=== PATIENT | female | born 1985 | race Asian ===

== ENCOUNTER 2022-01-18 07:57 | Inpatient (IN) | payer OTHER, SELFPAY ==
[2022-01-18 08:10] VITALS: BP 133/84; PULSE 98; RESP 18; TEMP 36.6; O2SAT 96
--- NOTE | 2022-01-18 08:17 | PC.NURSE ---
Patient admitted to floor via EMS, signed a CV, oriented to unit. Gait steady, affect even.
[2022-01-18 08:18] VITALS: BMI 25.4
--- NOTE | 2022-01-18 12:22 | PC.ADMIT ---
Patient is a 36 year old female, admitted on a CV from [facility] ED after an intentional overdose on Oxycodone 5 mg (20 tablets), Prozac 40 mg (2 tablets), Cymbalta ( 2 tablets, dosage unknown), and ZZZQuil. Patient was found by her in the morning, asleep, with several empty medication bottles lined up next to her. Dx: Major Depressive Disorder, severe. Patient reports she has had two significant stressors recently including the discovery that her had an undisclosed alcohol use problem and that her mother has been diagnosed with stage IV metastatic lung cancer. The overdose was triggered by an argument she had with her after his disclosure. This is her first inpatient admission, though she has had SI before, and her medications had been kept in a locked box as a result. She was able to access the medications in the locked box, including Oxycodone, a prescription she received after undergoing a salpingo-oopherectomy. On arrival patient was alert, oriented x3, affect even, pleasant. Denied any residual effects from the overdose, denied SI/HI. Patient arrived dressed in a hospital skyler, given belongings once inventoried. She states that she didn't anticipate this attempt, though she had been having increased mood swings : It was unexpected- a shock to me. She does not have a clear recollection of the attempt.
[2022-01-18] MEDS: cephALEXin 500 MG CAPSULE PO ×2 (14:36→20:58)
[2022-01-18] MEDS: DULoxetine HCl 20 MG CAPSULE.DR PO (14:36)
[2022-01-18] MEDS: Loratadine 10 MG TABLET PO (14:36)
--- NOTE | 2022-01-18 20:42 | HO.PSYADMNOT ---
HPI Date of Service: 01/18/22 Chief Complaint: Major depressive sidorder HPI Narrative: pt was BIB her to ED after he found her asleep with empty med bottles by her side. she had taken 100 mg oxycodone, some ZQuil, 2 prozac tabs, and 2 cymbalta tabs. she had had an argument with her earlier in the evening and had gone for a drive to try to clear her head. she came home late after her and their 8 yo child were asleep and then overdosed in her 's office (where the med safe where the medications were kept was. she prised it open). she describes the act as very impulsive, saying she didn't feel suicidal shortly before the act and doesn't feel suicidal now (or when she was awakened). she describes herself as shocked at her behavior and rather scared of herself, concerned about what she might do moving forward if left to her own devices. she reports severe psychosocial stressors in recent months including the revelation that her has been struggling with an occult drinking problem which finally became known to her in August, when he entered a rehab. in addition her mother was diagnosed with metastatic lung CA in september, which is termninal. to complicate things further, pt is faced with a medical complication regarding her mood complaint: she was diagnosed with endometriosis in august and is currently undergoing hormonal therapy which induces an artificial menopause for 6 months to try to reduce the size of the wayward tissue. such therapy is associated with depression and mood lability. in september she began to have severe anxiety with panic attacks and was nearly unable to leave the house. in october she had SI via OD and was able to approach her and therapist about it. this episode, she was not. she reports that in addition to overdose, she has also considered suicide via drowning or hanging. she was open to a dose increase in duloxetine, as that had been the plan with her outpt prescriber in any case, and CUTTER GRINDER consult to review her endometriosis Tx. she reluctantly agrees to try ativan 1 mg PRN severe anxiety or sense of overwhelm as well. Past Psychiatric History: no prior psychiatric hosps (other than present) no h/o SA (other than index event). h/o SI dating to October,, when she had the idea to overdose. no h/o SIB no h/o HIB. entered treatment when in [place] about 4.5 years ago. was with that therapist for nearly 4 years, then moved here and did not immediately seek treatment. obtained therapist and psychiatrist in september,: leodan schneider, whom she sees weekly. clayton paz does her meds, seen via telehealth. no mental health treatment Hx prior to entering therapy about 4.5 years ago. 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 the family moved from the [facility] area in 2019 to begin her work at [email or web address]. Substance History: alcohol - about twice monthly has 1-2 drinks with friends tobacco - denies use cannabis - denies use denies use of other drugs or recreational substances Trauma History: denies Diagnostics Vital Signs (24Hr): Vital Signs - 24 hr 01/18/22 08:10 Temperature 97.9 F Pulse Rate 98 Respiratory Rate 18 Blood Pressure 133/84 Pulse Oximetry 96 Oxygen Delivery Method Room Air BMI result Body Mass Index 25.4 Meds/Allergies Meds Home Medications Medication Instructions Recorded Confirmed Type cephalexin 500 mg capsule 500 mg PO BID 01/18/22 01/18/22 History duloxetine 20 mg capsule,delayed 20 mg PO BID 01/18/22 01/18/22 History release leuprolide 3.75 mg intramuscular 3.75 mg IM 01/18/22 History Allergies Allergies Allergy/AdvReac Type Severity Reaction Status Date / Time No Known Allergies Allergy Verified 01/18/22 08:36 Mental Status Exam Mental Status Exam Narrative: dressed partially in hospital skyler and partially in street clothes. adequately groomed, green highlights in her hair. cooperative, no PMA/PMR. speech nml in rate, amount, loudness, tone, latency. thoughts linear and logical without evidence of paranoia or delusions. affect flexible but generally constricted, normo-intense, non-labile (one brief period of tearfulness). mood shocked. denies SI/HI/AVH. Assessment & Plan Assessment & Plan (1) Major depressive disorder with current active episode: Status: Acute Code(s): F32.9 - Major depressive disorder, single episode, unspecified Plan increase duloxetine 20 BID to 30 BID for depression and anxiety. ativan 1 mg PRN severe anxiety/overwhelm. request CUTTER GRINDER opine as to the role her hormonal therapy may be playing in depressed mood and impulsive suicide attempt, and options for ongoing mgmt of endometriosis. Patient educated on: diagnosis and medication risk/benefits Reason for continued inpatient stay Substantial Risk for: harm to self and inability to function
[2022-01-18 20:55] VITALS: BP 128/83; PULSE 116; RESP 16; TEMP 36.3; O2SAT 98
[2022-01-18] MEDS: DULoxetine HCl 30 MG CAPSULE.DR PO (20:58)
[2022-01-19] MEDS: Loratadine 10 MG TABLET PO (08:38)
[2022-01-19] MEDS: Fluticasone Propionate Nasal 16 GM SPRAY 1 SPRAY NOSTRIL-B (08:38)
[2022-01-19 08:41] VITALS: BP 115/60; PULSE 94; RESP 18; TEMP 36.7; O2SAT 97
[2022-01-19] MEDS: DULoxetine HCl 30 MG CAPSULE.DR PO ×2 (09:28→20:34)
[2022-01-19] MEDS: cephALEXin 500 MG CAPSULE PO ×2 (09:28→20:34)
--- NOTE | 2022-01-19 16:01 | HO.PSYCHPN ---
Subjective Subjective Date of Service: 01/19/22 Reason For Visit: Major depressive sidorder Interim History: calm, cooperative. remains flummoxed by her behavior. 36 yo, no h/o SA or even depression so severe that that was dwelt upon, aside from post- depression where she thought about it briefly, but the depression spontaneously resolved. gets leupron Q28 days, most supposed to have gotten it last thursday (2 days ago) but missed the dosing, of course. states she is feeling pretty normal right now, but that's how she felt just before trying to kill herself, as well as not too long after. would like discharge thursday. per staff, doing well. slept well. visible, pleasant. Mental Status Exam Mental Status Exam Narrative: dressed partially in hospital skyler and partially in street clothes. adequately groomed, green highlights in her hair. cooperative, no PMA/PMR. speech nml in rate, amount, loudness, tone, latency. thoughts linear and logical without evidence of paranoia or delusions. affect flexible but generally constricted, normo-intense, non-labile. mood pretty normal. denies SI/HI/AVH. Diagnostics Vital Signs (24Hr): Vital Signs - 24 hr 01/18/22 20:55 01/19/22 08:41 Temperature 97.4 F 98.0 F Pulse Rate 116 H 94 Respiratory Rate 16 18 Blood Pressure 128/83 115/60 Pulse Oximetry 98 97 Oxygen Delivery Method Room Air Room Air BMI result Body Mass Index 25.4 Medications Medications Current Medications Acetaminophen (Acetaminophen 325 Mg Tablet) 650 mg PO Q6H PRN PRN Reason: Headache/Pain Mild Scale (1-3) Al Hydroxide/Mg Hydroxide (Magnesium Hydrox/Alum Hydrox 30 Ml Oral.Susp) 30 ml PO Q6H PRN PRN Reason: Heartburn/Nausea Cephalexin HCl (Cephalexin 500 Mg Capsule) 500 mg PO BID [facility] Last Admin: 01/19/22 09:28 Dose: 500 mg Duloxetine HCl (Duloxetine Hcl 30 Mg Capsule.Dr) 30 mg PO BID [facility] Last Admin: 01/19/22 09:28 Dose: 30 mg Fluticasone Propionate (Fluticasone Propionate Nasal 16 Gm [place]) 1 spray NOSTRIL-B DAILY [facility] Last Admin: 01/19/22 08:38 Dose: 1 spray Hydroxyzine HCl (Hydroxyzine Hcl 25 Mg Tablet) 25 mg PO Q6H PRN PRN Reason: Anxiety Loratadine (Loratadine 10 Mg Tablet) 10 mg PO DAILY [facility] Last Admin: 01/19/22 08:38 Dose: 10 mg Lorazepam (Lorazepam 1 Mg Tablet) 1 mg PO Q4H PRN PRN Reason: severe anxiety Magnesium Hydroxide (Milk Of Magnesia 30 Ml Oral.Susp) 30 ml PO DAILY PRN PRN Reason: Constipation Nicotine Polacrilex (Nicotine Polacrilex 2 Mg Gum) 2 mg BUCCAL Q2H PRN PRN Reason: Nicotine Cravings Trazodone HCl (Trazodone Hcl 50 Mg Tablet) 50 mg PO BEDTIME PRN PRN Reason: Insomnia Allergies Allergies Allergy/AdvReac Type Severity Reaction Status Date / Time No Known Allergies Allergy Verified 01/18/22 08:36 Assessment & Plan Assessment & Plan (1) Major depressive disorder with current active episode: Status: Acute Code(s): F32.9 - Major depressive disorder, single episode, unspecified Plan increased duloxetine 20 BID to 30 BID for depression and anxiety. ativan 1 mg PRN severe anxiety/overwhelm. requested ASSOCIATE PROFESSOR OF THEOLOGY opine as to the role her hormonal therapy may be playing in depressed mood and impulsive suicide attempt, and options for ongoing mgmt of endometriosis (Zerbe). I spent __25____ minutes with the patient and/or on the patient floor today, greater than?50% of which was spent counseling/coordinating care. Reason for contiued inpatient stay Substantial Risk for: harm to self, inability to function and rapid decompensation
[2022-01-19 20:20] VITALS: BP 125/71; PULSE 90; RESP 18; TEMP 36.6; O2SAT 98
[2022-01-20 06:00] VITALS: BP 124/82; PULSE 88; RESP 16; TEMP 36.8; O2SAT 98
[2022-01-20] MEDS: Loratadine 10 MG TABLET PO (08:20)
[2022-01-20] MEDS: DULoxetine HCl 30 MG CAPSULE.DR PO ×2 (08:20→21:17)
[2022-01-20] MEDS: Fluticasone Propionate Nasal 16 GM SPRAY 1 SPRAY NOSTRIL-B (08:20)
[2022-01-20] MEDS: cephALEXin 500 MG CAPSULE PO ×2 (08:20→21:18)
--- NOTE | 2022-01-20 08:39 | PM.GYNCN ---
DIGITAL PRINTER OPERATOR - CN: [facility] Data of Consult Consult date: 01/20/22 Requesting Physician: Dhruv Shaffer Primary Care Provider: Unknown Physician Consult Narrative Narrative: I was consulted on Megan Braden who is a 36 year old female who is admitted for suicidal attempt and depression. The patient gives a history of endometriosis status post right laparoscopic salpingo-oophorectomy in 11/01 after which shewas started on Depo Lupron Q 1 month. Last shot was scheduled on 01/17 but was missed. No Pelvic pain or vaginal bleeding or any other complaints. The plan is for the patient to be discharged either this afternoon or tomorrow morning per patient. cc:: CC: Dhruv Shaffer ENVIRONMENTAL EMERGENCIES ASSISTANT - Review of Systems Review of Systems ROS Unobtainable: All systems reviewed & are unremarkable except as noted in HPI and below OB PMFSH Past Medical History Medical History (Updated 01/20/22 @ 08:43 by Napoleon Reyes MD) Endometriosis Surgical History Surgical History (Updated 01/20/22 @ 08:42 by Napoleon Reyes MD) History of salpingo-oophorectomy Social History Social History Household Members: Spouse Patient Tobacco Use Status: Never used Tobacco Use of substances other than those prescribed or required for medical reasons: No Currently Displaying Signs/Symptoms of Drug Intoxication Withdrawal: No Have you been hit, kicked, punched, or otherwise hurt by someone within the past year? If so, by whom?: No Do you feel safe in your current relationship?: Yes Is there a partner from a previous relationship who is making you feel unsafe now?: No Are you made to feel afraid or neglected: No Spiritual Healthcare Practices: Denies Advance Directives: No Advance Directives Information Provided: Yes Advance Directives on File: No Do you have thoughts of harming others: None Do you have a plan to hurt others: No Plan Nutrition Risks: No Nutritional Risk Patient : No Meds Allergies Allergy/AdvReac Type Severity Reaction Status Date / Time No Known Allergies Allergy Verified 01/18/22 08:36 Active Medications: Current Medications Acetaminophen (Acetaminophen 325 Mg Tablet) 650 mg PO Q6H PRN PRN Reason: Headache/Pain Mild Scale (1-3) Al Hydroxide/Mg Hydroxide (Magnesium Hydrox/Alum Hydrox 30 Ml Oral.Susp) 30 ml PO Q6H PRN PRN Reason: Heartburn/Nausea Cephalexin HCl (Cephalexin 500 Mg Capsule) 500 mg PO BID COUNTS INCLUDE 234 BEDS AT THE [facility] Last Admin: 01/20/22 08:20 Dose: 500 mg Duloxetine HCl (Duloxetine Hcl 30 Mg Capsule.Dr) 30 mg PO BID COUNTS INCLUDE 234 BEDS AT THE [facility] Last Admin: 01/20/22 08:20 Dose: 30 mg Fluticasone Propionate (Fluticasone Propionate Nasal 16 Gm [place]) 1 spray NOSTRIL-B DAILY COUNTS INCLUDE 234 BEDS AT THE [facility] Last Admin: 01/20/22 08:20 Dose: 1 spray Hydroxyzine HCl (Hydroxyzine Hcl 25 Mg Tablet) 25 mg PO Q6H PRN PRN Reason: Anxiety Loratadine (Loratadine 10 Mg Tablet) 10 mg PO DAILY COUNTS INCLUDE 234 BEDS AT THE [facility] Last Admin: 01/20/22 08:20 Dose: 10 mg Lorazepam (Lorazepam 1 Mg Tablet) 1 mg PO Q4H PRN PRN Reason: severe anxiety Magnesium Hydroxide (Milk Of Magnesia 30 Ml Oral.Susp) 30 ml PO DAILY PRN PRN Reason: Constipation Nicotine Polacrilex (Nicotine Polacrilex 2 Mg Gum) 2 mg BUCCAL Q2H PRN PRN Reason: Nicotine Cravings Trazodone HCl (Trazodone Hcl 50 Mg Tablet) 50 mg PO BEDTIME PRN PRN Reason: Insomnia Home Medications Medication Instructions Recorded Confirmed Last Taken Type cephalexin 500 mg capsule 500 mg PO BID 01/18/22 01/18/22 01/17/22 History duloxetine 20 mg capsule,delayed 20 mg PO BID 01/18/22 01/18/22 1 Day Ago History release ~01/17/22 leuprolide 3.75 mg intramuscular 3.75 mg IM 01/18/22 3 Weeks Ago History ~12/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 PRINTER OPERATOR Physical Exam Vitals Vital signs: Temp Pulse Resp BP Pulse Ox O2 Del Method 97.9 F 90 18 125/71 98 01/19/22 20:20 01/19/22 20:20 01/19/22 20:20 01/19/22 20:20 01/19/22 20:20 01/19/22 20:20 BMI result Body Mass Index 25.4 Constitutional General Appearance: Healthy appearing, Well-nourished and Well-developed Skin Appearance: No rashes and No lesions Cardiovascular Auscultation: RRR Abdomen Auscultation/Inspection/Palpation: Soft, Non-distended, No tenderness and No CVA tenderness Female Genitalia (Pelvic) Exam: Deferred Assessment and Plan (1) Endometriosis: Status: Acute Since the patient developed severe depression with suicidal attempt coincidingwith the initiation of the treatment of Lupron Depot, I recommend an alternative treatment for endometriosis related pain other than Depo- Lupron. Discussed with the patient different options of treatment including continuous control pills, Depo-Provera or OriLisa. All pros and cons, risks and benefits of each were discussed with the patient. the patient would like to follow-up with her OBGYN ss soon as possible once discharge to decide on a treatment plan. Since the patient's depression has improved and she has missed her last Depo Lupron 3 days ago, the next step in endometriosis management can wait few more days but explained to the patient the importance of not delaying it more than that since her pain can recur soon. All questions answered, the patient verbalized understanding and agreed with the plan. I spent a total of 25 minutes reviewing the chart, communicating with the patient and documenting in the medical record.
--- NOTE | 2022-01-20 10:29 | P.DS_ITS ---
DS: Providers Provider Date of admission: 01/18/22 07:57 Primary care physician: Unknown Physician Consults: 01/18/22 08:48 Consult to Hospitalist Routine Consulting Provider: Hospitalist Reason For Exam: admission from OSH 01/19/22 16:05 Consult to Obstetrics / Gynecology Routine Consulting Provider: Napoleon Reyes Reason for consultation: suicide attempt on hormone Tx for endometriosis; opine on Tx continuation Has provider been notified: No DS: Diagnosis Discharge Diagnosis (1) Endometriosis: Status: Acute DS: Medications Discharge Medications Home Medications: Previous Rx's Medication Instructions Recorded cephalexin 500 mg capsule 500 mg PO BID 5 days #10 caps 01/20/22 duloxetine 30 mg capsule,delayed 30 mg PO BID 30 days #60 caps 01/20/22 release lorazepam 1 mg tablet 1 mg PO DAILY PRN severe anxiety 01/20/22 30 days #10 tabs DS: Summary Time Spent with Patient Time attestation: Total time spent providing and/or coordinating discharge services: Discharge Plan Discharge Patient Disposition: Home, Self-Care Discharge Diagnosis: Depressive Disorder due to medical cause Referrals: [facility] [Physician] - 1 Week Discharge Medications: New lorazepam 1 mg Tablet 1 mg PO DAILY PRN (Reason: severe anxiety) 30 Days Qty: 10 0RF duloxetine 30 mg Capsule,Delayed Release(Dr/Ec) 30 mg PO BID 30 Days Qty: 60 0RF Continued cephalexin 500 mg Capsule 500 mg PO BID 5 Days Qty: 10 0RF Rx Instructions: For 7 days Started in [facility] ED Discontinued Lupron Depot 3.75 mg Injectable 3.75 mg IM Label Comments: will bring in, patient states she is due duloxetine 20 mg Capsule,Delayed Release(Dr/Ec) 20 mg PO BID Discharge Orders: Discharge Order (Routine); Ordered 01/20/22 Ordered By: Dhruv Shaffer Diet: Advance to usual diet Activity on Discharge: As tolerated Stand Alone Forms: Patient Portal Discharge page Care Plan Goals: remain safe and stable in the outpatient treatment setting Health Concerns: endometriosis Plan of Treatment: take medications as prescribed, attend appointments as scheduled Assessment: not at imminent risk of harm to self or others, although this behavior for her is unpredictable
--- NOTE | 2022-01-20 14:20 | P.PNPSI_ITS ---
Subjective Subjective Date of Service: 01/20/22 Reason For Visit: Major depressive sidorder Interim History: pt calm, cooperative. no change in presentation. discuss discharge today. slept well, mood normal anxiety. denies depression, denies SI. discuss chief console operator recs. discharge scheduled. per staff, seen by OB this morning. being treated for UTI. attending groups. denies SI. later in the day discussed case with CALI muñoz, pt's , and pt's therapist. per collateral from , pt has had reactive mood for a long time to instances of injustice. since entering therapy her ability to cope with those episodes has improved, and they have softened. in the past several months it has apparently been harder for her to manage such reactions. she has periods of what appears to be decapacitatingly depressed mood for up to 2 days at a time. her periods of reactive mood last only hours, generally. she will complete a crisis plan today with CALI, and CALI will make a DCF report on the event. the plan is now discharge for tomorrow. Mental Status Exam Mental Status Exam Narrative: dressed partially in hospital [facility] and partially in street clothes. adequately groomed, green highlights in her hair. cooperative, no PMA/PMR. speech nml in rate, amount, loudness, tone, latency. thoughts linear and logical without evidence of paranoia or delusions. affect flexible but generally constricted, normo-intense, non-labile. mood normal anxiety. denies SI. Diagnostics Vital Signs (24Hr): Vital Signs - 24 hr 01/19/22 20:20 01/20/22 06:00 Temperature 97.9 F 98.3 F Pulse Rate 90 88 Respiratory Rate 18 16 Blood Pressure 125/71 124/82 Pulse Oximetry 98 98 Oxygen Delivery Method Room Air Room Air BMI result Body Mass Index 25.4 Medications Medications Current Medications Acetaminophen (Acetaminophen 325 Mg Tablet) 650 mg PO Q6H PRN PRN Reason: Headache/Pain Mild Scale (1-3) Al Hydroxide/Mg Hydroxide (Magnesium Hydrox/Alum Hydrox 30 Ml Oral.Susp) 30 ml PO Q6H PRN PRN Reason: Heartburn/Nausea Cephalexin HCl (Cephalexin 500 Mg Capsule) 500 mg PO BID [facility] Last Admin: 01/20/22 08:20 Dose: 500 mg Duloxetine HCl (Duloxetine Hcl 30 Mg Capsule.Dr) 30 mg PO BID [facility] Last Admin: 01/20/22 08:20 Dose: 30 mg Fluticasone Propionate (Fluticasone Propionate Nasal 16 Gm [place]) 1 spray NOSTRIL-B DAILY [facility] Last Admin: 01/20/22 08:20 Dose: 1 spray Hydroxyzine HCl (Hydroxyzine Hcl 25 Mg Tablet) 25 mg PO Q6H PRN PRN Reason: Anxiety Loratadine (Loratadine 10 Mg Tablet) 10 mg PO DAILY [facility] Last Admin: 01/20/22 08:20 Dose: 10 mg Lorazepam (Lorazepam 1 Mg Tablet) 1 mg PO Q4H PRN PRN Reason: severe anxiety Magnesium Hydroxide (Milk Of Magnesia 30 Ml Oral.Susp) 30 ml PO DAILY PRN PRN Reason: Constipation Nicotine Polacrilex (Nicotine Polacrilex 2 Mg Gum) 2 mg BUCCAL Q2H PRN PRN Reason: Nicotine Cravings Trazodone HCl (Trazodone Hcl 50 Mg Tablet) 50 mg PO BEDTIME PRN PRN Reason: Insomnia Allergies Allergies Allergy/AdvReac Type Severity Reaction Status Date / Time No Known Allergies Allergy Verified 01/18/22 08:36 Assessment & Plan Assessment & Plan (1) Endometriosis: Status: Acute Code(s): N80.9 - Endometriosis, unspecified Assessment and Plan: Since the patient developed severe depression with suicidal attempt coincidingwith the initiation of the treatment of Lupron Depot, I recommend an alternative treatment for endometriosis related pain other than Depo- Lupron. Discussed with the patient different options of treatment including continuous control pills, Depo-Provera or OriLisa. All pros and cons, risks and benefits of each were discussed with the patient. the patient would like to follow-up with her OBGYN ss soon as possible once discharge to decide on a treatment plan. Since the patient's depression has improved and she has missed her last Depo Lupron 3 days ago, the next step in endometriosis management can wait few more days but explained to the patient the importance of not delaying it more than that since her pain can recur soon. All questions answered, the patient verbalized understanding and agreed with the plan. I spent a total of 25 minutes reviewing the chart, communicating with the patient and documenting in the medical record. 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 ativan 1 mg PRN severe anxiety/overwhelm. requested VENEER GLUER opine as to the role her hormonal therapy may be playing in depressed mood and impulsive suicide attempt, and options for ongoing mgmt of endometriosis. seen by Amy, see recs above. in short, plan is to D/C leupron therapy and meet with chief console operator NORMAN to start different Tx. DCF report being made today by CALI muñoz. planning for discharge tomorrow. I spent ___60___ minutes with the patient and/or on the patient floor today, greater than?50% of which was spent counseling/coordinating care. Reason for contiued inpatient stay Substantial Risk for: harm to self, inability to function and rapid decompensation
[2022-01-20 21:12] VITALS: BP 120/73; PULSE 101; RESP 16; TEMP 36.6; O2SAT 99
[2022-01-21 06:00] VITALS: BP 123/71; PULSE 88; RESP 16; TEMP 36.6; O2SAT 97
[2022-01-21] MEDS: Loratadine 10 MG TABLET PO (08:50)
[2022-01-21] MEDS: DULoxetine HCl 30 MG CAPSULE.DR PO (08:50)
[2022-01-21] MEDS: cephALEXin 500 MG CAPSULE PO (08:50)
[2022-01-21] MEDS: Fluticasone Propionate Nasal 16 GM SPRAY 1 SPRAY NOSTRIL-B (08:51)
--- NOTE | 2022-01-21 11:33 | PM.PSYDC ---
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 adequately groomed, green highlights in her hair. cooperative, no PMA/PMR. speech nml in rate, amount, loudness, tone, latency. thoughts linear and logical without evidence of paranoia or delusions. affect flexible but generally constricted, normo-intense, non-labile. mood pretty level, normal. excited to go home. denies SI/SIBI/HI/AVH. DS: Summary Hospital Course Hospital Course: per 01/18 admission note: pt was BIB her to ED after he found her asleep with empty med bottles by her side.? she had taken 100 mg oxycodone, some ZQuil, 2 prozac tabs, and 2 cymbalta tabs.? she had had an argument with her earlier in the evening and had gone for a drive to try to clear her head.? she came home late after her and their 8 yo child were asleep and then overdosed in her 's office (where the med safe where the medications were kept was.? she prised it open).? she describes the act as very impulsive, saying she didn't feel suicidal shortly before the act and doesn't feel suicidal now (or when she was awakened).? she describes herself as shocked at her behavior and rather scared of herself, concerned about what she might do moving forward if left to her own devices.? she reports severe psychosocial stressors in recent months including the revelation that her has been struggling with an occult drinking problem which finally became known to her in August, when he entered a rehab.? in addition her mother was diagnosed with metastatic lung CA in september, which is termninal.? to complicate things further, pt is faced with a medical complication regarding her mood complaint: she was diagnosed with endometriosis in august and is currently undergoing hormonal therapy which induces an artificial menopause for 6 months to try to reduce the size of the wayward tissue.? such therapy is associated with depression and mood lability.? in september she began to have severe anxiety with panic attacks and was nearly unable to leave the house.? in october she had SI via OD and was able to approach her and therapist about it.? this episode, she was not.? she reports that in addition to overdose, she has also considered suicide via drowning or hanging.? she was open to a dose increase in duloxetine, as that had been the plan with her outpt prescriber in any case, and [facility] consult to review her endometriosis Tx.? she reluctantly agrees to try ativan 1 mg PRN severe anxiety or sense of overwhelm as well. Past Psychiatric History: no prior psychiatric hosps (other than present) no h/o SA (other than index event).? h/o SI dating to October,, when she had the idea to overdose. no h/o SIB no h/o HIB. entered treatment when in [place] about 4.5 years ago.? was with that therapist for nearly 4 years, then moved here and did not immediately seek treatment.? obtained therapist and psychiatrist in september,: leodan schneider, whom she sees weekly. clayton paz does her meds, seen via telehealth. no mental health treatment Hx prior to entering therapy about 4.5 years ago. 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 the family moved from the [place], [place], area in 2020 to begin her work at [employer]. Substance History: alcohol - about twice monthly has 1-2 drinks with friends tobacco - denies use cannabis - denies use denies use of other drugs or recreational substances Trauma History: denies 01/19: calm, cooperative.? remains flummoxed by her behavior.? 36 yo, no h/o SA or even depression so severe that that was dwelt upon, aside from post- depression where she thought about it briefly, but the depression spontaneously resolved.? gets leupron Q28 days, most supposed to have gotten it last thursday (2 days ago) but missed the dosing, of course.? states she is feeling pretty normal right now, but that's how she felt just before trying to kill herself, as well as not too long after.? would like discharge thursday.? per staff, doing well.? slept well.? visible, pleasant. 01/20: pt calm, cooperative.? no change in presentation.? discuss discharge today.? slept well, mood normal anxiety. ? denies depression, denies SI.? discuss video coordinator recs.? discharge scheduled.? per staff, seen by OB this morning.? being treated for UTI.? attending groups.? denies SI.? later in the day discussed case with CALI muñoz, pt's , and pt's therapist.? per collateral from , pt has had reactive mood for a long time to instances of injustice.? since entering therapy her ability to cope with those episodes has improved, and they have softened.? in the past several months it has apparently been harder for her to manage such reactions.? she has periods of what appears to be decapacitatingly depressed mood for up to 2 days at a time.? her periods of reactive mood last only hours, generally.? she will complete a crisis plan today with CALI, and CALI will make a DCF report on the event.? the plan is now discharge for tomorrow. Precis: increased duloxetine 20 BID to 30 BID for depression and anxiety. ativan 1 mg PRN severe anxiety/overwhelm. requested [facility] [employer] [facility] opine as to the role her hormonal therapy may be playing in depressed mood and impulsive suicide attempt, and options for ongoing mgmt of endometriosis.? seen by Amy, see recs below.? in short, plan is to D/C leupron therapy and meet with video coordinator NORMAN to start different Tx. DCF report being made today by CALI muñoz. discharged 01/21 to home. per 01/20 [facility] [facility] consult: Since the patient developed severe depression with suicidal attempt coincidingwith the initiation of the treatment of Lupron Depot,? I recommend? an alternative treatment for endometriosis related pain other than Depo- Lupron.? Discussed with the patient different options of treatment including continuous control pills, Depo-Provera or OriLisa.? All pros and cons, risks and benefits of each were discussed with the patient.? the patient would like to follow-up with her OBGYN? ss soon as possible once discharge to decide on a treatment plan. Since the patient's depression has improved and she has missed her last Depo Lupron 3 days ago, the next step in endometriosis management can wait few more days but explained to the patient the importance of not delaying it more than that since her pain can recur soon.? All questions answered, the patient verbalized understanding and agreed with the plan.? I spent a total of 25 minutes reviewing the chart, communicating with the patient and? documenting in the medical record. Time Spent with Patient Time attestation: Total time spent providing and/or coordinating discharge services: Time spent: Greater than 30 minutes Discharge Plan Discharge Patient Disposition: Home, Self-Care Discharge Diagnosis: Depressive Disorder due to medical cause Referrals: Therapist: Leodan Schneider ([facility]) [Other] - 01/22/22 9:00 am (Telehealth ) Nicky Mittal MD [Physician] - 02/27/22 10:00 am Discharge Medications: New lorazepam 1 mg Tablet 1 mg PO DAILY PRN (Reason: severe anxiety) 30 Days Qty: 10 0RF duloxetine 30 mg Capsule,Delayed Release(Dr/Ec) 30 mg PO BID 30 Days Qty: 60 0RF Continued cephalexin 500 mg Capsule 500 mg PO BID 5 Days Qty: 10 0RF Rx Instructions: For 7 days Started in [facility] Discontinued Lupron Depot 3.75 mg Injectable 3.75 mg IM Label Comments: will bring in, patient states she is due duloxetine 20 mg Capsule,Delayed Release(Dr/Ec) 20 mg PO BID Discharge Orders: Discharge Order (Routine); Ordered 01/21/22 Ordered By: Dhruv Shaffer Diet: Advance to usual diet Activity on Discharge: As tolerated Stand Alone Forms: Patient Portal Discharge page, Community Support Care Plan Goals: remain safe and stable in the outpatient treatment setting Health Concerns: endometriosis Plan of Treatment: take medications as prescribed, attend appointments as scheduled Assessment: not at imminent risk of harm to self or others, although this behavior for her is unpredictable Discharge Date/Time: 01/21/22 13:49
== END 2022-01-21 13:49 | disposition home or self-care (01) | DRG 884 ==
PROVIDERS: Admitting Provider Psychiatry & Neurology Psychiatry; Visit Provider Psychiatry & Neurology Psychiatry
DX: F06.34 Mood disorder due to known physiological condition with mixed features (principal); R45.851 Suicidal ideations; N80.9 Endometriosis, unspecified; Z91.14 Patient's other noncompliance with medication regimen; Z79.899 Other long term (current) drug therapy